=== PATIENT | male | born 1965 | race Caucasian/White ===

== ENCOUNTER → 2021-06-14 | Outpatient (CLI) | payer OTHER ==
--- NOTE | 2021-06-14 10:10 | RAD ---
EXAM: Lumbar spine, 3 views. HISTORY: Pain. COMPARISON: None. FINDINGS: 3 views of the lumbar spine are obtained. There is grade 1 anterolisthesis of L5-S1, measur ing 3 mm. There is multilevel endplate remodeling and facet arthropathy. There is chronic mild decrea sed vertebral body height at L5. There is no suspicious osseous lesion. IMPRESSION: Multilevel degenerative change, primarily at the lower lumbar levels. No acute osseous fi nding. Electronically signed by: Enriqueta Liu MD (06/14/2021 10:07 AM) [id number]
== END ==
LOC: RAD 09:17
PROVIDERS: ATTEND Family Medicine
DX: Z02.71 Encounter for disability determination (principal); M47.816 Spondylosis without myelopathy or radiculopathy, lumbar region; M43.17 Spondylolisthesis, lumbosacral region
CPT/HCPCS: 72100